=== PATIENT | male | born 1990 | race Caucasian/White ===

== ENCOUNTER 2018-07-16 18:32 | Emergency (ER) | payer SELFPAY ==
[~2018-07-16 18:32] MED LIST: Iopamidol 370 76% 100 ML VIAL ONE
[2018-07-16] MEDS ORDERED: Sodium Chloride 0.9% 1,000 ML ONE (19:12)
[2018-07-16 19:20] LABS: #Basophils 0.2 thou/uL (0.0-0.2); #Eosinphils 0.2 thou/uL (0.0-0.7); #Lymphocytes 1.1 thou/uL (1.20-3.40); #Neutrophils 11.3 thou/uL (1.40-6.50); %Basophils 1.1 % (0.0-1.0); %Eosinophils 1.2 % (0.0-10.0); %Lymphocytes 8.2 % (21.0-51.0); %Monocytes 6.9 % (0.0-10.0); %Neutrophils 82.5 % (42.0-75.0); Hemoglobin 15.2 g/dL (14.0-18.0); Mean Corpuscular HGB CONC 34.7 g/dL (32.0-36.0); Mean Corpuscular Hemoglobin 30.4 pg (27.0-31.0); Mean Corpuscular Volume 87.6 fL (78.0-98.0); Mean Platelet Volume 8.4 fL (7.4-10.4); Platelet Count 202 thou/uL (130-400); RBC Distribution Width 11.7 % (11.5-14.5); White Blood Cell (WBC) Count 13.7 thou/uL (4.8-10.8)
[2018-07-16 19:38] LABS: ALT (SGPT) 17 U/L (8-55); AST (SGOT) 26 U/L (5-34); Albumin 4.7 g/dL (3.5-5.0); Alcohol Less than 10 mg/dL (Less than 10); Alkaline Phosphatase 77 U/L (40-150); Anion Gap 14 mmol/L (10-20); BUN (Urea Nitrogen) 15 mg/dL (8.9-20.6); Bilirubin, Total 1.3 mg/dL (0.2-1.2); Calc. Creatinine Clearance 0 mL/min (70-130); Calcium 9.4 mg/dL (7.8-10.44); Carbon Dioxide 23 mmol/L (22-29); Chloride 106 mmol/L (98-107); Estimated GFR-MDRD 78; Glucose 93 mg/dL (70-105); Potassium 4.1 mmol/L (3.5-5.1); Protein, Total 7.7 g/dL (6.0-8.3); Sodium 139 mmol/L (136-145)
--- NOTE | 2018-07-16 20:09 | RAD ---
RIGHT FEMUR: 07/16/18 AP and lateral views for a total of four images. HISTORY: Trauma. No fracture identified. No osseous abnormality seen. IMPRESSION: No acute findings. POS: AGW
--- NOTE | 2018-07-16 20:12 | CT ---
EXAM: CT Thoracic Spine WO Con PROVIDED CLINICAL HISTORY: Trauma. COMPARISON: None FINDINGS: The vertebral body heights are within normal limits. Interspinous distances are also within normal li mits. No fracture or subluxation is seen involving the thoracic spine. The paravertebral soft tissues are within normal limits. The limited visualized lungs are clear. IMPRESSION: No fracture or subluxation involving the thoracic spine.
--- NOTE | 2018-07-16 20:26 | CT ---
CT ABDOMEN AND PELVIS WITH IV CONTRAST LIMITED CT LUMBAR SPINE CLINICAL INFORMATION: Trauma COMPARISON: None. FINDINGS: Lower Chest: Lung bases are clear. Vessels: Abdominal aorta is normal in caliber without evidence of an aortic injury. Abdomen: Portal vein:Patent Gallbladder: Within normal limits for CT imaging. Liver: within normal limits. Pancreas: within normal limits. Spleen: within normal limits. Adrenals: within normal limits. Kidneys: A nonobstructing inferior pole right renal calculus measuring 4 mm is present. The kidneys o therwise demonstrate a normal CT appearance bilaterally. Bowel: Small to moderate amount of retained fecal material is seen throughout the colon. Loops of sma ll bowel are normal in caliber. Appendix: The appendix is dilated measuring 11 mm. However, this is secondary to submucosal fat invol ving the joseph of the appendix suggesting lipomatosis of the appendix. No periappendiceal inflammatory changes are identified. Peritoneum: No ascites or free air; no fluid collection. Mesentery and Retroperitoneum: No enlarged mesenteric or retroperitoneal lymph nodes. Abdominal Wall: There is mild subcutaneous soft tissue stranding seen anterior and posterior to the r ight iliac bone which may represent subcutaneous edema and/or contusion. There is suggestion of minimal edema in the region of the musculature of the anterior pelvis anterior to the right iliac bon e. Pelvis: Reproductive Organs: No pelvic masses. Pelvis within normal limits. Bladder: within normal limits. Bones: No fracture is identified. Limited CT lumbar spine: The vertebral body heights and intervertebral disc spaces are within normal limits. No fracture or triplett bluxation is seen involving the lumbar spine. IMPRESSION: 1. No acute findings are seen in the abdomen or pelvis. 2. Nonobstructing right renal calculus. 3. 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 4. No fracture or subluxation involving the lumbar spine. 5. Stranding in the subcutaneous soft tissues both anterior and posterior to the right iliac bone whi ch may represent either mild subcutaneous edema and/or contusions. Minimal edema seen within the underlying musculature anteriorly.
[2018-07-16 20:43] LABS: Bilirubin Negative (Negative); Blood, Urine Negative (Negative); Clarity Clear (Clear); Glucose, Urine (Dipstick) Negative (Negative); Leukocyte Negative (Negative); Nitrite Negative (Negative); Protein, Urine (Dipstick) Negative (Neg-Trace); Specific Gravity, Urine 1.015 (1.005-1.030); Urobilinogen 0.2 mg/dL (0.2-1.0)
== END 2018-07-16 22:26 | disposition short-term general hospital (02) ==
LOC: MADERS 18:32
DX: S38.1XXA Crushing injury of abdomen, lower back, and pelvis, initial encounter (principal); S77.11XA Crushing injury of right thigh, initial encounter; S32.2XXA Fracture of coccyx, initial encounter for closed fracture; F17.210 Nicotine dependence, cigarettes, uncomplicated; W23.0XXA Caught, crushed, jammed, or pinched between moving objects, initial encounter
CPT/HCPCS: 72128; 74177; 80053; 80307; 81003; 83605; 85025; 96360; J7050; Q9967